=== PATIENT | female | born 1970 | race Asian ===

== ENCOUNTER → 2018-04-13 | Outpatient (CLI) | payer SELFPAY ==
[~2018-04-13] MED LIST: DORZ1DRO5 OU; LOR5/325 PO
--- NOTE | 2018-04-14 13:51 | RADIOLOGY IMAGING REPORT ---
FACILITY: [facility] [place] PATIENT NAME: AMI MOODY : [id number] MR: [id number] V: [id number] EXAM DATE: [id number] ORDERING PHYSICIAN: ESTEPHANIA CEBALLOS TECHNOLOGIST: Ninfa Reynolds PROCEDURE:BILATERAL DIGITAL SCREENING MAMMOGRAM WITH CAD ASSISTED INTERPRETATION & 3D TOMOSYNTHESIS COMPARISON:Prior mammograms 01/28/16. INDICATIONS:screening FINDINGS: Moderately dense fibroglandular tissue is seen throughout the breasts. The parenchymal pattern has remained stable allowing for difference in mammographic technique & patient positioning. There is no evidence of malignant appearing mass, malignant appearing calcifications or other secondary sign of malignancy in either breast. DIAGNOSTIC CATEGORY 1--NEGATIVE. RECOMMENDATIONS: ROUTINE MAMMOGRAM AND CLINICAL EVALUATION. IMPRESSION: BIRADS 1: Negative. No significant abnormality is seen. Dictated by: Avril Yarbrough M.D. on 04/13/2018 at 15:39 Transcribed by: MARBELLA on 04/13/2018 at 15:42 Approved by: Avril Yarbrough M.D. on 04/14/2018 at 13:50 [facility]
== END ==
LOC: MAMO 02:19
PROVIDERS: ATTEND Obstetrics & Gynecology
DX: Z12.31 Encounter for screening mammogram for malignant neoplasm of breast (principal)
CPT/HCPCS: 77063; 77067

== ENCOUNTER 2019-01-04 00:38 | Emergency (ER) | payer SELFPAY ==
--- NOTE | 2019-01-04 00:48 | ER Report ---
History and Physical Time Seen By MD: 00:47 HPI/ROS CHIEF COMPLAINT: accidental ingestion of vitamins, minerals, supplements dissolved in water HISTORY OF PRESENT ILLNESS: This is a 48 year old female. She has some Spirulima, Zinc, B-complex, and D3 that she did not want. In their culture they dissolve these in water to dispose of them. They had added a bunch of pills, uncertain amount of each, to a bottle of water, about 16 ounces. She drank about half or more of this water yesterday on accident. She has had some upset stomach since then. Worried about toxic effect of these supplements. Denies chest pain, shortness of breath, diarrhea or vomiting. Allergies: Coded Allergies: ibuprofen (Verified Adverse Reaction, Mild, "UPSET STOMACH WITH TOO MUCH", 01/04/19) Home Meds Active Scripts Hydrocodone Bit/Acetaminophen (HYDROCODON-ACETAMINOPHEN 5-325) 1 Each Tablet, 1- 2 EACH PO Q4-6H PRN for PAIN, #10 TAB 0 Refills Prov:ESTEPHANIA CEBALLOS MD 12/07/14 Reported Medications Dorzolamide/Timolol/Pf (COSOPT PF EYE DROPS) 1 Each Droperette, 1 EACH OU BID 12/04/14 Reviewed Nurses Notes: Yes Hx Smoking: No Smoking Status: Never Smoker Hx Alcohol Use: No Constitutional Vital Sign - Last 24 Hours 01/04/19 01/04/19 01/04/19 01/04/19 00:43 00:45 00:49 00:53 Temp 97.5 Pulse 67 64 Resp 16 B/P (MAP) 133/98 (110) 133/98 129/78 (95) Pulse Ox 94 94 O2 Delivery Room Air 01/04/19 01/04/19 01/04/19 01/04/19 01:00 01:08 01:23 01:30 Pulse 62 63 B/P (MAP) 127/92 (104) 124/82 (96) Pulse Ox 95 94 01/04/19 01/04/19 01/04/19 01/04/19 01:38 01:43 01:58 02:00 Pulse 64 66 63 B/P (MAP) 116/83 (94) Pulse Ox 95 94 95 Physical Exam General Appearance: Alert, no distress. Eyes: Pupils equal and round no injection. ENT: Normal oral mucosa. Moist mucous membranes Respiratory: Lungs clear. Cardiac: regular rate and rhythm, normal peripheral perfusion. Gastrointestinal: Abdomen is soft and non tender, bowel sounds normal. Musculoskeletal: Non tender. Skin: No rashes or lesions. DIFFERENTIAL DIAGNOSIS: After history and physical exam differential diagnosis was considered for concern about poisoning from vitamins, supplements. Medical Decision Making Data Points Result Diagram: 01/04/19 0126 01/04/19 0126 Laboratory Hematology Test 01/04/19 00:00 01/04/19 01:26 Urine Color Yellow Urine Clarity Cloudy Urine pH 8.0 pH (4.8-9.5) Urine Specific [place] 1.008 Urine Protein Negative mg/dL (NEGATIVE) Urine Glucose (UA) Negative mg/dL (NEGATIVE) Urine Ketones Negative mg/dL (NEGATIVE) Urine Blood Negative (NEGATIVE) Urine Nitrite Negative (NEGATIVE) Urine Bilirubin Negative (NEGATIVE) Urine Urobilinogen Negative mg/dL (0.2-1.9) Urine Leukocyte Esterase Negative (NEGATIVE) Urine RBC <1 /HPF (0-2/HPF) Urine WBC <1 /HPF (0-5/HPF) Urine Squamous Epithelial Cells None /LPF (</=FEW) Urine Transitional Epithelial Cells Few /LPF (NONE-FEW) Urine Amorphous Crystals Few /HPF Urine Bacteria Negative /HPF (NONE-FEW) Urine Mucus None /HPF (NONE-FEW) Red Blood Count 4.23 M/uL (4.17-5.56) Mean Corpuscular Volume 91.1 fL (80.0-96.0) Mean Corpuscular Hemoglobin 31.5 pg (26.0-33.0) Mean Corpuscular Hemoglobin Concent 34.6 g/dL (32.0-36.0) Red Cell Distribution Width 12.2 % (11.5-14.5) Mean Platelet Volume 6.8 fL (7.2-11.1) Neutrophils (%) (Auto) 42.8 % (39.4-72.5) Lymphocytes (%) (Auto) 46.6 % (17.6-49.6) Monocytes (%) (Auto) 7.7 % (4.1-12.4) Eosinophils (%) (Auto) 2.1 % (0.4-6.7) Basophils (%) (Auto) 0.8 % (0.3-1.4) Nucleated RBC Relative Count (auto) 0.0 /100WBC Neutrophils # (Auto) 3.0 K/uL (2.0-7.4) Lymphocytes # (Auto) 3.2 K/uL (1.3-3.6) Monocytes # (Auto) 0.5 K/uL (0.3-1.0) Eosinophils # (Auto) 0.1 K/uL (0.0-0.5) Basophils # (Auto) 0.1 K/uL (0.0-0.1) Nucleated RBC Absolute Count (auto) 0.00 K/uL Sodium Level 144 mmol/L (137-145) Potassium Level 4.1 mmol/L (3.5-5.0) Chloride Level 104 mmol/L (98-107) Carbon Dioxide Level 26 mmol/L (22-31) Blood Urea Nitrogen 9 mg/dl (7-18) Creatinine 0.70 mg/dl (0.52-1.04) Glomerular Filtration Rate Calc > 60.0 Random Glucose 116 mg/dl (75-110) Calcium Level 10.0 mg/dl (8.4-10.2) Total Bilirubin < 0.1 mg/dl (0.2-1.3) Aspartate Amino Transf (AST/SGOT) 19 U/L (0-35) Alanine Aminotransferase (ALT/SGPT) 22 U/L (0-56) Alkaline Phosphatase 90 U/L (0-126) Total Protein 8.2 g/dl (6.3-8.2) Albumin 4.2 g/dl (3.5-5.0) Chemistry Test 01/04/19 00:00 01/04/19 01:26 Urine Color Yellow Urine Clarity Cloudy Urine pH 8.0 pH (4.8-9.5) Urine Specific [place] 1.008 Urine Protein Negative mg/dL (NEGATIVE) Urine Glucose (UA) Negative mg/dL (NEGATIVE) Urine Ketones Negative mg/dL (NEGATIVE) Urine Blood Negative (NEGATIVE) Urine Nitrite Negative (NEGATIVE) Urine Bilirubin Negative (NEGATIVE) Urine Urobilinogen Negative mg/dL (0.2-1.9) Urine Leukocyte Esterase Negative (NEGATIVE) Urine RBC <1 /HPF (0-2/HPF) Urine WBC <1 /HPF (0-5/HPF) Urine Squamous Epithelial Cells None /LPF (</=FEW) Urine Transitional Epithelial Cells Few /LPF (NONE-FEW) Urine Amorphous Crystals Few /HPF Urine Bacteria Negative /HPF (NONE-FEW) Urine Mucus None /HPF (NONE-FEW) White Blood Count 7.0 k/uL (4.5-11.0) Red Blood Count 4.23 M/uL (4.17-5.56) Hemoglobin 13.3 g/dL (12.0-16.0) Hematocrit 38.5 % (34.0-47.0) Mean Corpuscular Volume 91.1 fL (80.0-96.0) Mean Corpuscular Hemoglobin 31.5 pg (26.0-33.0) Mean Corpuscular Hemoglobin Concent 34.6 g/dL (32.0-36.0) Red Cell Distribution Width 12.2 % (11.5-14.5) Platelet Count 296 K/uL (150-450) Mean Platelet Volume 6.8 fL (7.2-11.1) Neutrophils (%) (Auto) 42.8 % (39.4-72.5) Lymphocytes (%) (Auto) 46.6 % (17.6-49.6) Monocytes (%) (Auto) 7.7 % (4.1-12.4) Eosinophils (%) (Auto) 2.1 % (0.4-6.7) Basophils (%) (Auto) 0.8 % (0.3-1.4) Nucleated RBC Relative Count (auto) 0.0 /100WBC Neutrophils # (Auto) 3.0 K/uL (2.0-7.4) Lymphocytes # (Auto) 3.2 K/uL (1.3-3.6) Monocytes # (Auto) 0.5 K/uL (0.3-1.0) Eosinophils # (Auto) 0.1 K/uL (0.0-0.5) Basophils # (Auto) 0.1 K/uL (0.0-0.1) Nucleated RBC Absolute Count (auto) 0.00 K/uL Glomerular Filtration Rate Calc > 60.0 Calcium Level 10.0 mg/dl (8.4-10.2) Total Bilirubin < 0.1 mg/dl (0.2-1.3) Aspartate Amino Transf (AST/SGOT) 19 U/L (0-35) Alanine Aminotransferase (ALT/SGPT) 22 U/L (0-56) Alkaline Phosphatase 90 U/L (0-126) Total Protein 8.2 g/dl (6.3-8.2) Albumin 4.2 g/dl (3.5-5.0) Urinalysis Test 01/04/19 00:00 Urine Color Yellow Urine Clarity Cloudy Urine pH 8.0 pH (4.8-9.5) Urine Specific [place] 1.008 Urine Protein Negative mg/dL (NEGATIVE) Urine Glucose (UA) Negative mg/dL (NEGATIVE) Urine Ketones Negative mg/dL (NEGATIVE) Urine Blood Negative (NEGATIVE) Urine Nitrite Negative (NEGATIVE) Urine Bilirubin Negative (NEGATIVE) Urine Urobilinogen Negative mg/dL (0.2-1.9) Urine Leukocyte Esterase Negative (NEGATIVE) Urine RBC <1 /HPF (0-2/HPF) Urine WBC <1 /HPF (0-5/HPF) Urine Squamous Epithelial Cells None /LPF (</=FEW) Urine Transitional Epithelial Cells Few /LPF (NONE-FEW) Urine Amorphous Crystals Few /HPF Urine Bacteria Negative /HPF (NONE-FEW) Urine Mucus None /HPF (NONE-FEW) ED Course/Re-evaluation ED Course Considering the possible amounts of these in the small amount of fluid involved, the chance of problems from this is small. The supplements all can cause some gastrointestinal distress. Labs obtained and negative, CBC, CMP and urinalysis. They can follow-up with primary care and consider repeat labs in the next 1-2 weeks. Decision to Disposition Date: Jan 04, 2019 Decision to Disposition Time: 01:54 Depart Departure Latest Vital Signs Vital Signs Date Time Temp Pulse Resp B/P (MAP) Pulse Ox O2 Delivery O2 Flow Rate FiO2 01/04/19 02:00 116/83 (94) 01/04/19 01:58 63 95 01/04/19 00:45 97.5 16 Room Air Impression: Primary Impression: Overdose or poisoning by vitamins Condition: Improved Disposition: HOME OR SELF-CARE Patient Instructions: Electrolyte/Mineral Supplement (By mouth) Additional Instructions: The amount of the vitamins, minerals and supplements that you likely ingested is estimated to be low. These can cause gastrointestinal discomfort. Labs tonight were normal. We recommend follow-up with primary care for re-evaluation in 1-2 weeks. Problem Qualifiers Primary Impression: Overdose or poisoning by vitamins Encounter type: initial encounter Injury intent: accidental or unintentional Qualified Codes: T45.2X1A - Poisoning by vitamins, accidental (unintentional), initial encounter KYUNG FERRER MD Jan 04, 2019 00:48
[2019-01-04 01:41] LABS: PLATELET COUNT, AUTOMATED 296 K/uL (150-450)
[2019-01-04 02:00] VITALS: BP 116/83
== END 2019-01-04 02:10 | disposition home or self-care (01) ==
LOC: ER 00:48
DX: T45.2X1A Poisoning by vitamins, accidental (unintentional), initial encounter (principal)
CPT/HCPCS: 81001; 82040; 82247; 82310; 82374; 82435; 82565; 82947; 84075; 84132; 84155; 84295; 84450; 84460; 84520; 85025; 99282